=== PATIENT | male | born 1970 | race Caucasian/White ===

== ENCOUNTER 2021-12-23 15:36 | Inpatient (IN) | payer OTHER ==
[~2021-12-23] VITALS: Ht 177.8 cm; Wt 92.5 kg
[2021-12-23 20:00] VITALS: BP 133/72
[2021-12-23] MEDS: ETHYL ALCOHOL 62% ANTISEPTIC NASAL SANITIZER 0.6 ML AMPUL NASAL SCH (21:51)
[2021-12-23] MEDS: ATORVASTATIN CALCIUM 40 MG TABLET PO SCH (21:51)
[2021-12-23] MEDS: SENNA 187 MG TABLET PO PRN (21:51)
[2021-12-23] MEDS: ACETAMINOPHEN 325 MG TABLET PO PRN (21:51)
[2021-12-23] MEDS: DOCUSATE SODIUM 250 MG CAPSULE PO SCH (21:52)
[2021-12-24] MEDS ORDERED: INFLUENZA VIRUS VACCINE QVS 2022-23 (6MO+)/PF 60 MCG/0.5 ML SYRINGE IM. ONE (03:15)
[2021-12-24 07:25] LABS: BASOPHILS % (AUTO) 0.4 % (0.0-2.0); EOSINOPHILS % (AUTO) 1.5 % (1.0-6.0); HEMATOCRIT 47.3 % (41-53); HEMOGLOBIN 16.1 g/dL (13.5-17.5); LYMPHOCYTES # (AUTO) 1.6 K/uL (1.0-4.8); LYMPHOCYTES % (AUTO) 16.1 % (22.0-44.0); MEAN CORPUSCULAR HGB CONC 34.1 G/dL (31.0-37.0); MEAN CORPUSCULAR VOLUME 97 fL (80-100); MONOCYTES # (AUTO) 0.6 K/uL (0.1-1.0); MONOCYTES % (AUTO) 5.9 % (2.0-9.0); NEUTROPHILS # (AUTO) 7.4 K/uL (1.8-7.7); NEUTROPHILS % (AUTO) 76.1 % (40.0-70.0); PLATELET COUNT (AUTO) 309 K/uL (150-450); RED BLOOD CELL COUNT(AUTO) 4.89 MIL/uL (4.50-5.90); RED CELL DISTRIBUTION WIDTH 12.4 % (11.5-14.5)
[2021-12-24 07:59] LABS: ALANINE AMINOTRANSFERASE 76 U/L (12-78); ALBUMIN 3.6 g/dL (3.4-5.0); ALKALINE PHOSPHATASE 90 U/L (46-116); ANION GAP 9 mmol/L (8-16); ASPARTATE AMINOTRANSFERASE 37 U/L (15-37); BILIRUBIN,TOTAL 1.3 mg/dL (0.1-1.0); CALCIUM, TOTAL 9.2 mg/dL (8.8-10.5); CARBON DIOXIDE 26 mmol/L (22-29); CHLORIDE 100 mmol/L (98-107); CREATININE 0.98 mg/dL (0.60-1.30); GLUCOSE,RANDOM 103 mg/dL (70-110); POTASSIUM 4.1 mmol/L (3.5-5.1); SODIUM SERUM 135 mmol/L (136-145); UREA NITROGEN, BLOOD 14 mg/dL (7-18)
[2021-12-24 08:00] LABS: GLOMERULAR FILTR. RATE CALC > 60 mL/min (>60)
[2021-12-24] MEDS: AmLODIPine BESYLATE 5 MG TABLET PO SCH (08:04)
[2021-12-24] MEDS: MULTIVITAMINS, THERAPEUTIC TABLET PO SCH (08:04)
[2021-12-24] MEDS: ASPIRIN 81 MG CHEWABLE TABLET PO SCH (08:04)
[2021-12-24] MEDS: ETHYL ALCOHOL 62% ANTISEPTIC NASAL SANITIZER 0.6 ML AMPUL NASAL SCH ×2 (08:05→20:35)
[2021-12-24] MEDS: LISINOPRIL 20 MG TABLET PO SCH (08:05)
[2021-12-24] MEDS: ENOXAPARIN SODIUM 40 MG/0.4 ML PF SYRINGE SQ SCH (08:05)
[2021-12-24] MEDS: DOCUSATE SODIUM 250 MG CAPSULE PO SCH ×2 (08:05→20:35)
[2021-12-24 10:46] VITALS: BP 121/78
[2021-12-24] MEDS: MELATONIN 5 MG TABLET PO PRN (20:36)
[2021-12-24] MEDS: ATORVASTATIN CALCIUM 40 MG TABLET PO SCH (20:36)
[2021-12-24 21:05] VITALS: BP 144/84
[2021-12-25] MEDS: ETHYL ALCOHOL 62% ANTISEPTIC NASAL SANITIZER 0.6 ML AMPUL NASAL SCH ×2 (07:19→20:22)
[2021-12-25] MEDS: DOCUSATE SODIUM 250 MG CAPSULE PO SCH ×2 (07:20→20:22)
[2021-12-25] MEDS: MULTIVITAMINS, THERAPEUTIC TABLET PO SCH (07:20)
[2021-12-25] MEDS: LISINOPRIL 20 MG TABLET PO SCH (07:20)
[2021-12-25] MEDS: AmLODIPine BESYLATE 5 MG TABLET PO SCH (07:20)
[2021-12-25] MEDS: ENOXAPARIN SODIUM 40 MG/0.4 ML PF SYRINGE SQ SCH (07:20)
[2021-12-25] MEDS: ASPIRIN 81 MG CHEWABLE TABLET PO SCH (07:20)
[2021-12-25 08:23] VITALS: BP 113/76
[2021-12-25 20:00] VITALS: BP 121/70
[2021-12-25] MEDS: MELATONIN 5 MG TABLET PO PRN (20:22)
[2021-12-25] MEDS: ATORVASTATIN CALCIUM 40 MG TABLET PO SCH (20:22)
[2021-12-26 08:05] VITALS: BP 138/71
[2021-12-26] MEDS: ETHYL ALCOHOL 62% ANTISEPTIC NASAL SANITIZER 0.6 ML AMPUL NASAL SCH ×2 (08:06→20:40)
[2021-12-26] MEDS: AmLODIPine BESYLATE 5 MG TABLET PO SCH (08:07)
[2021-12-26] MEDS: MULTIVITAMINS, THERAPEUTIC TABLET PO SCH (08:07)
[2021-12-26] MEDS: LISINOPRIL 20 MG TABLET PO SCH (08:07)
[2021-12-26] MEDS: ENOXAPARIN SODIUM 40 MG/0.4 ML PF SYRINGE SQ SCH (08:07)
[2021-12-26] MEDS: ASPIRIN 81 MG CHEWABLE TABLET PO SCH (08:07)
[2021-12-26] MEDS: DOCUSATE SODIUM 250 MG CAPSULE PO SCH ×2 (08:07→20:40)
[2021-12-26] MEDS: ACETAMINOPHEN 325 MG TABLET PO PRN (08:09)
[2021-12-26 20:10] VITALS: BP 105/64
[2021-12-26] MEDS: MELATONIN 5 MG TABLET PO PRN (20:40)
[2021-12-26] MEDS: ATORVASTATIN CALCIUM 40 MG TABLET PO SCH (20:42)
[2021-12-27 08:00] VITALS: BP 109/79
[2021-12-27] MEDS: ASPIRIN 81 MG CHEWABLE TABLET PO SCH (08:26)
[2021-12-27] MEDS: DOCUSATE SODIUM 250 MG CAPSULE PO SCH ×2 (08:26→21:00)
[2021-12-27] MEDS: MULTIVITAMINS, THERAPEUTIC TABLET PO SCH (08:26)
[2021-12-27] MEDS: ETHYL ALCOHOL 62% ANTISEPTIC NASAL SANITIZER 0.6 ML AMPUL NASAL SCH ×2 (08:26→21:00)
[2021-12-27] MEDS: AmLODIPine BESYLATE 5 MG TABLET PO SCH (08:26)
[2021-12-27] MEDS: ENOXAPARIN SODIUM 40 MG/0.4 ML PF SYRINGE SQ SCH (08:27)
[2021-12-27] MEDS: LISINOPRIL 20 MG TABLET PO SCH (08:27)
[2021-12-27 20:02] VITALS: BP 117/73
[2021-12-27] MEDS: SENNA 187 MG TABLET PO PRN (20:59)
[2021-12-27] MEDS: MELATONIN 5 MG TABLET PO PRN (20:59)
[2021-12-27] MEDS: ATORVASTATIN CALCIUM 40 MG TABLET PO SCH (21:00)
[2021-12-28 08:02] VITALS: BP 145/61
[2021-12-28] MEDS: ETHYL ALCOHOL 62% ANTISEPTIC NASAL SANITIZER 0.6 ML AMPUL NASAL SCH ×2 (08:08→20:26)
[2021-12-28] MEDS: ASPIRIN 81 MG CHEWABLE TABLET PO SCH (08:09)
[2021-12-28] MEDS: AmLODIPine BESYLATE 5 MG TABLET PO SCH (08:10)
[2021-12-28] MEDS: LISINOPRIL 20 MG TABLET PO SCH (08:10)
[2021-12-28] MEDS: MULTIVITAMINS, THERAPEUTIC TABLET PO SCH (08:10)
[2021-12-28] MEDS: DOCUSATE SODIUM 250 MG CAPSULE PO SCH ×2 (08:10→20:26)
[2021-12-28] MEDS: ENOXAPARIN SODIUM 40 MG/0.4 ML PF SYRINGE SQ SCH (08:11)
[2021-12-28 20:26] VITALS: BP 138/84
[2021-12-28] MEDS: ATORVASTATIN CALCIUM 40 MG TABLET PO SCH (20:26)
[2021-12-28] MEDS: ACETAMINOPHEN 325 MG TABLET PO PRN (20:26)
[2021-12-28] MEDS: MELATONIN 5 MG TABLET PO PRN (20:26)
[2021-12-29] MEDS ORDERED: LISI-893 PO (03:26)
[2021-12-29] MEDS ORDERED: AMLO-257 PO (03:26)
[2021-12-29 08:00] VITALS: BP 114/72
[2021-12-29 08:00] LABS: ANION GAP 10 mmol/L (8-16); CALCIUM, TOTAL 9.3 mg/dL (8.8-10.5); CARBON DIOXIDE 26 mmol/L (22-29); CHLORIDE 98 mmol/L (98-107); CREATININE 0.99 mg/dL (0.60-1.30); GLUCOSE,RANDOM 102 mg/dL (70-110); POTASSIUM 4.6 mmol/L (3.5-5.1); SODIUM SERUM 134 mmol/L (136-145); UREA NITROGEN, BLOOD 13 mg/dL (7-18)
[2021-12-29 08:01] LABS: GLOMERULAR FILTR. RATE CALC > 60 mL/min (>60)
[2021-12-29] MEDS: ASPIRIN 81 MG CHEWABLE TABLET PO SCH (08:12)
[2021-12-29] MEDS: MULTIVITAMINS, THERAPEUTIC TABLET PO SCH (08:12)
[2021-12-29] MEDS: DOCUSATE SODIUM 250 MG CAPSULE PO SCH ×2 (08:12→20:13)
[2021-12-29] MEDS: ENOXAPARIN SODIUM 40 MG/0.4 ML PF SYRINGE SQ SCH (08:12)
[2021-12-29] MEDS: LISINOPRIL 20 MG TABLET PO SCH (08:12)
[2021-12-29] MEDS: AmLODIPine BESYLATE 5 MG TABLET PO SCH (08:13)
[2021-12-29] MEDS: ETHYL ALCOHOL 62% ANTISEPTIC NASAL SANITIZER 0.6 ML AMPUL NASAL SCH ×2 (08:13→20:13)
[2021-12-29] MEDS ORDERED: SILD25TA10 PO (11:39)
[2021-12-29 20:10] VITALS: BP 127/78
[2021-12-29] MEDS: MELATONIN 5 MG TABLET PO PRN (20:12)
[2021-12-29] MEDS: ATORVASTATIN CALCIUM 40 MG TABLET PO SCH (20:12)
[2021-12-29] MEDS ORDERED: FAMOTIDINE 20 MG TABLET PO SCH (21:00)
[2021-12-29] MEDS ORDERED: LISI-894 PO (21:29)
[2021-12-29] MEDS ORDERED: DOCU-350 PO (21:31)
[2021-12-29] MEDS ORDERED: ATOR40TA28 PO (21:31)
[2021-12-29] MEDS ORDERED: ASPI-1450 PO (21:31)
[2021-12-29] MEDS ORDERED: MULT-248 PO (21:31)
[2021-12-29] MEDS ORDERED: FAMO20 PO (21:34)
[2021-12-30] MEDS: ENOXAPARIN SODIUM 40 MG/0.4 ML PF SYRINGE SQ SCH (08:03)
[2021-12-30] MEDS: ETHYL ALCOHOL 62% ANTISEPTIC NASAL SANITIZER 0.6 ML AMPUL NASAL SCH (08:03)
[2021-12-30] MEDS: LISINOPRIL 20 MG TABLET PO SCH (08:04)
[2021-12-30] MEDS: ASPIRIN 81 MG CHEWABLE TABLET PO SCH (08:04)
[2021-12-30] MEDS: MULTIVITAMINS, THERAPEUTIC TABLET PO SCH (08:04)
[2021-12-30] MEDS: AmLODIPine BESYLATE 5 MG TABLET PO SCH (08:04)
[2021-12-30 09:30] VITALS: BP 126/77
[2021-12-30] MEDS ORDERED: ATOR40TA71 PO (11:00)
[2021-12-30] MEDS ORDERED: FAMO20 PO (11:00)
[2021-12-30] MEDS ORDERED: Multivitamins/Therapeutic PO (11:00)
[2021-12-30] MEDS ORDERED: LISI-894 PO (11:00)
[2021-12-30] MEDS ORDERED: AMLO-257 PO (11:00)
[2021-12-30] MEDS ORDERED: ASPI81 PO (11:00)
[2021-12-30] MEDS: DOCUSATE SODIUM 250 MG CAPSULE PO SCH (11:16)
== END 2021-12-30 12:45 | disposition home or self-care (01) | DRG 56 ==
LOC: 2WR 19:59
PROVIDERS: ADMIT Physical Medicine & Rehabilitation; ATTEND Physical Medicine & Rehabilitation
DX: G81.91 Hemiplegia, unspecified affecting right dominant side (principal); I63.9 Cerebral infarction, unspecified; E87.1 Hypo-osmolality and hyponatremia; E78.00 Pure hypercholesterolemia, unspecified; G56.00 Carpal tunnel syndrome, unspecified upper limb; I10 Essential (primary) hypertension; R47.1 Dysarthria and anarthria; R27.8 Other lack of coordination; R27.0 Ataxia, unspecified; Z82.3 Family history of stroke; Z79.01 Long term (current) use of anticoagulants; Z82.49 Family history of ischemic heart disease and other diseases of the circulatory system; Z80.9 Family history of malignant neoplasm, unspecified
CPT/HCPCS: 80048; 80053; 85025; 87081; 90686; 92507; 92526; 92610; 97110; 97112; 97116; 97150; 97163; 97166; 97530; 97535; 99366; J1650; Q9967